=== PATIENT | male | born 1945 | race Caucasian/White ===

== ENCOUNTER 2018-10-08 17:47 | Emergency (ER) | payer OTHER ==
[~2018-10-08] VITALS: Ht 170.2 cm; Wt 62.1 kg
[2018-10-08] MEDS ORDERED: CITRATE OF MAG296 ML PO (19:10)
[2018-10-08] MEDS ORDERED: ALBUTEROL2.5 MG/0.1 INH (19:15)
[2018-10-08] MEDS ORDERED: VENTOLIN HFA 1818 GM INH (19:15)
[2018-10-08] MEDS ORDERED: SIMETHICON CHEW80 M1 PO (21:01)
== END 2018-10-08 21:21 | disposition home or self-care (01) ==
LOC: ER 17:47
DX: K59.00 Constipation, unspecified (principal); R14.0 Abdominal distension (gaseous); F17.210 Nicotine dependence, cigarettes, uncomplicated; J44.9 Chronic obstructive pulmonary disease, unspecified

== ENCOUNTER 2018-11-07 21:32 | Inpatient (IN) | payer OTHER ==
[~2018-11-07] VITALS: Ht 170.2 cm; Wt 65.3 kg
--- NOTE | ~2018-11-07 | HC ---
[facility] [place] [address] CONSULTATION Name: SHIRACotyAUSTIN Room #: [address] [place] [address] IN M.R.#: [id number] Admission: 11/08/18 Attend Phys: Kraig Watters MD Discharge: Date of : 43 Report #: [id number] THIS REPORT FOR: //name// CC: DANNY physician/PCP Kraig Watters DATE OF SERVICE: 11/09/2018 REASON FOR CONSULTATION: Elevated creatinine. HISTORY OF PRESENT ILLNESS: Unfortunate patient with very advanced COPD, presented with shortness of air and a pCO2 of 80-90. Treated with steroids and antibiotics, also given some IV Lasix. He also underwent a CT angiogram of the chest with contrast. His creatinine initially was 1.1 and now has risen to 1.6. He also presented with tachyarrhythmia and new onset atrial fibrillation flutter, continues in this rhythm, rate is a little bit better controlled, although still over 100 intermittently. PAST MEDICAL HISTORY: Longstanding heavy smoker, has continued to smoke right up until the current time. COPD, followed by Dr. Larsen . Has recently been on a course of steroids. He also uses inhalers at home, has home O2, but has for the most part just used it at night. He had remote coronary bypass over 30 years ago at [place], but has not really had cardiac issues since until this episode of tachyarrhythmia. HOME MEDICATIONS: Have included only inhaler, baby aspirin. SOCIAL HISTORY: Heavy smoker, continuing to smoke as mentioned. FAMILY HISTORY: Positive for only heart disease. REVIEW OF SYSTEMS: GENERAL: He was doing reasonably well until increasing shortness of breath recently. EYES: Vision has been okay. Does use glasses. ENT: Hearing okay, swallows okay. No mouth sores. ENDOCRINE: No diabetes or thyroid disease. RESPIRATORY: Very easily short-winded. CARDIOVASCULAR: No chest pain. He does not have any palpitations despite the arrhythmias. GASTROINTESTINAL: No nausea, vomiting, diarrhea, bloody stools. GENITOURINARY: Has a good urinary stream. NEUROLOGIC: Denies seizure, syncope, stroke or neuropathy. MUSCULOSKELETAL: Denies arthritis. PHYSICAL EXAMINATION: [facility] [address] [place] [address] CONSULTATION Name[facility] Room #: 205-P [facility] IN ..#: [id number] Admission: 11/08/18 Attend Phys: Kraig Watters MD Discharge: Date of : 43 Report #: [id number] GENERAL: This is a somewhat thin elderly gentleman, mentally quite good, giving a good history. SKIN: Unremarkable. SKELETAL: Rather thin. HEENT: Extraocular movements are full. Vision intact. No scleral icterus. Hearing intact. Mucous membranes are slightly dry. NECK: Supple. Neck veins are distended. CHEST: Shows scanty basilar crackles. HEART: Irregular and tachy. ABDOMEN: Soft and nontender. EXTREMITIES: Show trace peripheral edema. NEUROLOGIC: Intact. LABORATORY DATA: As mentioned, the pCO2 initially was 90, now it is down to 51. Hemoglobin is 13.5, down from 15.8. Sodium 138, potassium 4.7, chloride 96, bicarbonate 39, creatinine was 1.2, up to 1.6. BUN was 32, up to 43. ASSESSMENT: 1. Acute kidney injury. He had a CT angio in the setting of diuresis and severe chronic obstructive pulmonary disease exacerbation, has some degree of acute kidney injury. Urinalysis and renal sono will be checked for completeness, although I doubt these will reveal much in the way of issues. At this point, I would stop his Lasix, maybe, give him some gentle IV fluids to see if we can get his creatinine turned around. There is a consideration for possible heart catheterization. I will certainly hold off on that as this seems to be very elective, he is not having any chest pains at the current time despite his low ejection fraction. 2. Severe chronic obstructive pulmonary disease. 3. Atrial fibrillation/flutter with rapid ventricular response. 4. History of coronary bypass. By: 1221 1540 Kofi Mayberry MD /nt
--- NOTE | ~2018-11-07 | PATH ---
[facility] [address] [place] [address] PATHOLOGY RPT PROCEDURE Name: JDKIMBERTON Room #: [facility]- ADM IN M.R.#: [id number] Admission: 11/08/18 Date of : 43 Discharge: Report #: [id number] Path Case #: [id number] Note [facility] Accession Number: [id number] TESTS RESULT FLAG UNITS REF RANGE LAB Clinician Provided Cytology Information No. of containers..01 Other (Miscellaneous) Source: PLEURAL FLUID DIAGNOSIS: 02 PLEURAL FLUID NEGATIVE FOR MALIGNANT CELLS. MESOTHELIAL CELLS ARE PRESENT. THIS INTERPRETATION INCLUDES EVALUATION OF A CELL BLOCK. Signed out by: 02 Edy Montero MD, Pathologist NPI- [id number] Performed by: 01 Arnoldo Wooten, Tie In Hand ([facility]) Gross description: 01 12ML, PINK, CLOUDY /LCS FLAG LEGEND: L-Low Normal,H-High Normal,LL-Alert Low,HH-Alert High <-Panic Low,>-Panic High,A-Abnormal,AA-Critical Abnormal Performed at: [address] [place] [address] Rashaun Campuzano MD, [address] [address] Cassidy Whitfield MD, Specimen Comment: A courtesy copy of this report has been sent to Specimen Comment: [phone]. Specimen Comment: Report sent to Performed at: [address], [place], [place] [id number] MD Rashaun Campuzano MD Phone: [phone]
--- NOTE | ~2018-11-07 | EKG ---
[place] [address] [facility] [place] [address] ELECTROCARDIOGRAM REPORT Name: LEONEL MILES Room #: 205-P ADM IN M.R.#: [id number] Admission: 11/08/18 Attend Phys: Kragi Watters MD Discharge: Date of : 44 Report #: [id number] THIS REPORT FOR: //name// [facility] ED Test Date: 2018-11-07 Test Time: 21:42:56 Pat Name: LEONEL MILES Department: Room: 205 Gender: M Inspector Shells: PJ : 1945 Requested By: Darlyn Celeste Order Number: [id number] MD: Aron Sanchez Measurements Intervals [place] Rate: 157 P: 267 NE: 70 QRS: 88 QRSD: 103 T: 265 QT: 247 QTc: 400 Interpretive Statements Atrial flutter with rapid ventricular response Borderline right axis deviation Probable LVH with secondary repol abnrm ST depression, probably rate related Baseline wander in lead(s) V1,V2 No previous ECG available for comparison Electronically Signed On 11-08-2018 8:36:33 LEATHER PRODUCTION WORKER by Aron Sanchez [email or web address] <ELECTRONICALLY SIGNED> By: Aron Sanchez MD, [facility] 11/08/18 0836 41 41 Aron Sanchez MD, [facility] /EPI
--- NOTE | ~2018-11-07 | EKG ---
[address] [address] ELECTROCARDIOGRAM REPORT Name: SHIRACotyLEONEL Room #: 205-P ADM IN M.R.#: [id number] Admission: 11/08/18 Attend Phys: Kraig Watters MD Discharge: Date of : 44 Report #: [id number] THIS REPORT FOR: //name// [facility] Test Date: 2018-11-08 Test Time: 09:22:32 Pat Name: LEONEL MILES Department: Room: 205 P Gender: M Group Activities Aide: : 1945 Requested By: Salud Morris Order Number: [id number] MD: Kevin Dallas Measurements Intervals [place] Rate: 102 P: SD: QRS: 80 QRSD: 129 T: 212 QT: 401 QTc: 523 Interpretive Statements Atrial flutter Ventricular premature complex IVCD, Compared to ECG 11/07/2018 21:42:56 Ventricular premature complex(es) now present Electronically Signed On 11-08-2018 13:26:59 STREETCAR CONDUCTOR by Kevin Dallas [email or web address] <ELECTRONICALLY SIGNED> By: Kevin Dallas MD 11/08/18 1326 1 1 Kevin Dallas MD /DANIELLE
--- NOTE | ~2018-11-07 | HC ---
[facility] [place] [address] CONS[facility]ATION [facility] Room #: [address] [place] [address] IN .R.#: [id number] Admission: 11/08/18 Attend Phys: Kraig Watters MD Discharge: Date of : 44 Report #: [id number] THIS REPORT FOR: //name// CC: FAM physician/PCP Kraig Watters DATE OF SERVICE: 11/09/2018 REFERRING PHYSICIAN: Kraig Watters MD. REASON FOR REFERRAL: COPD. HISTORY OF PRESENT ILLNESS: The patient is a 73-year-old white male who was admitted with progressive dyspnea. A pulmonary consultation was requested. The patient has known underlying COPD. He is followed by school teacher in the local area. He is normally on O2 at 3 liters. The patient was at his usual state of health until the morning of presentation when he started to become dyspneic. With worsening symptoms, he presented to the Emergency Room. Otherwise, he denies any fever, night sweats or chills, chest pain or productive cough. PAST MEDICAL HISTORY: Notable for COPD, chronic O2 at 3 liters, coronary artery disease, underwent coronary artery bypass surgery in the past. ALLERGIES: None to medications. HOME MEDICATIONS: Include DuoNeb q.i.d., aspirin. FAMILY HISTORY: Noncontributory. SOCIAL HISTORY: The patient has smoked in the past, but quit more than a year ago. He denies any alcohol use. REVIEW OF SYSTEMS: As mentioned above, otherwise 10-point system review negative. PHYSICAL EXAMINATION: GENERAL: He is awake, alert, appears to be in moderate distress. VITAL SIGNS: Temperature is 97 degrees, pulse is 70, respiratory rate is 19, blood pressure 108/72 mmHg, saturation 98%. HEENT: Normocephalic, atraumatic. NECK: Supple, without lymphadenopathy or thyromegaly. [facility] [address] [place] [address] CON[facility] Room #: 239-P [facility] IN [facility]#: [id number] Admission: 11/08/18 Attend Phys: Kraig Watters MD Discharge: Date of : 44 Report #: [id number] CHEST: Breath sounds are fair. Bibasilar crackles. Mild expiratory wheezes. CARDIOVASCULAR: Normal S1, S2. There appears to be a gallop, no obvious murmurs. Pulses are 2+/4+ bilaterally. ABDOMEN: Soft, nontender, no organomegaly or masses felt. GENITOURINARY: Deferred. RECTAL: Deferred. EXTREMITIES: 1+ edema bilaterally. No cyanosis or clubbing. LABORATORY DATA: Chest x-ray shows increased interstitial changes in the left lung field. D-dimer was 2.3. BNP 12,900. CT chest angiogram shows no evidence of pulmonary embolus, enlarged cardiac silhouette, severe central lobar emphysema bilaterally with diffuse bronchial wall thickening. There appears to have moderate ascites along with cirrhosis. Echocardiogram showed ejection fraction of 20%, dilated right ventricle, hypokinetic right ventricle, moderate regurgitation, pulmonary artery pressure 33. EKG shows atrial flutter. Renal ultrasound was normal. Electrolytes are normal except for creatinine of 1.6, BUN is 39. WBC 12,200, hemoglobin 13.5, platelets mildly reduced at 104,000. Arterial blood gas on admission revealed pH 7.25, pCO2 of 90, pO2 of 247 and FiO2 of 60%. Follow up arterial blood gas shows pH 7.37, pCO2 of 50, pO2 of 98 on FiO2 of 40%. IMPRESSION: 1. Ndiqj-ka-emcmwbc hypercapnic hypoxic respiratory failure in this 73-year-old white male secondary to exacerbation of chronic obstructive pulmonary disease along with heart failure. 2. Chronic obstructive pulmonary disease, severity unknown, but suspect severe, on chronic O2. 3. Probable acute on chronic systolic heart failure with ejection fraction of 20%. 4. Mitral regurgitation. 5. Acute kidney injury with a creatinine of 1.6. RECOMMENDATIONS: We will continue bronchodilators and corticosteroids. Wean O2 for saturation 90%. DVT and GI prophylaxis recommended. Thank you for the consultation. <ELECTRONICALLY SIGNED> By: Bro Campoverde MD 11/10/18 1659 1839 [id number] Bro Campoverde MD /nt
--- NOTE | ~2018-11-07 | 2DMMODE ---
[facility] [address] [place] [address] 2 D/M-MODE ECHOCARDIOGRAM Name: JDMALAGA Room #: 205-P [facility] IN [facility].#: [id number] Admission: 11/08/18 Attend Phys: Kraig Watters MD Discharge: Date of : 43 Date of Service: 11/08/18 1312 Report #: [id number] THIS REPORT FOR: //name// APPROVED REPORT Study performed: 11/08/2018 12:13:20 EXAM: Comprehensive 2D, Doppler, and color-flow Echocardiogram Patient Location: Bedside Room #: [facility] Status: routine BSA: 1.68 HR: 95 bpm BP: 93/64 mmHg Rhythm: Atrial Flutter Other Information Study Quality: Adequate Indications Congestive Heart Failure COPD Dyspnea Atrial flutter 2D Dimensions RVDd: 53.34 mm IVSd: 7.09 (7-11mm) LVOT Diam: 19.97 (18-24mm) LVDd: 60.04 mm PWd: 7.55 (7-11mm) Ascending Ao: 26.66 (22-36mm) LVDs: 57.43 (25-40mm) Aortic Root: 26.48 mm IVC: 24.00 mm Volumes Left Atrial Volume (Systole) Single Plane 4CH: 66.72 mL Single Plane 2CH: 75.55 mL LA ESV Index: 48.00 mL/m2 Aortic Valve AoV Peak Donavan.: 1.46 m/s AO Peak Gr.: 8.77 mmHg Pulmonary Valve PV Peak Donavan.: 1.15 m/s PV Peak Gr.: 5.30 mmHg [facility] [address] [place] [address] 2 D/M-MODE [facility]ARDIOGRAM [facility] Room #: 205-P [facility] IN [facility].#: [id number] Admission: 11/08/18 Attend Phys: Kraig Watters MD Discharge: Date of : 43 Date of Service: 11/08/18 1312 Report #: [id number] Tricuspid Valve TR Peak Donavan.: 2.40 m/s TR Peak Gr.: 23.09 mmHg PA Pressure: 33.00 mmHg Left Ventricle Left ventricle is dilated. There is severe global hypokinesis of the left ventricle. There is normal left ventricular wall thickness. Left ventricular ejection fraction is severely decreased. LVEF is 20%. This study is not technically sufficient to allow evaluation of the LV diastolic function due to atrial flutter. Right Ventricle Right ventricle is dilated. Right ventricle is hypokinetic. Atria Left atrium is dilated. Right atrium is dilated. Aortic Valve The aortic valve is normal in structure. No aortic regurgitation is present. There is no aortic valvular stenosis. Mitral Valve The mitral valve is normal in structure. Moderate mitral regurgitation. No evidence of mitral valve stenosis. Tricuspid Valve The tricuspid valve is normal in structure. There is trace to mild tricuspid regurgitation. Estimated PAP 33 mmHg. There is mild pulmonary hypertension. Pulmonic Valve The pulmonary valve is normal in structure. There is no pulmonic valvular regurgitation. Great Vessels The aortic root is normal in size. IVC is dilated and collapses <50% with inspiration. Pericardium There is no pericardial effusion. <Conclusion> Left ventricle is dilated. There is severe global hypokinesis of the left ventricle. [facility] [address] [place] [address] 2 D/M-MODE ECHOCARDIOGRAM Name: [facility] Room #: 205-P ADM IN M.R.#: [id number] Admission: 11/08/18 Attend Phys: Kraig Watters MD Discharge: Date of : 43 Date of Service: 11/08/181311 Report #: [id number] LVEF is 20%. Right ventricle is dilated. Right ventricle is hypokinetic. Left atrium is dilated. The aortic valve is normal in structure. The mitral valve is normal in structure. Moderate mitral regurgitation. The tricuspid valve is normal in structure. There is trace to mild tricuspid regurgitation. Estimated PAP 33 mmHg. There is mild pulmonary hypertension. There is no pericardial effusion. <ELECTRONICALLY SIGNED> By: Kavin Colbert MD 11/08/181311 11 1312 Kavin Colbert MD /INF
[~2018-11-07 21:32] MED LIST: ALBUTEROL2.5 MG/0.1 INH; CITRATE OF MAG296 ML PO; SIMETHICON CHEW80 M1 PO; VENTOLIN HFA 1818 GM INH
[2018-11-07 21:53] LABS: ABSOLUTE NEUTROPHILS 6.4 thou/uL (1.4-8.2); BASOPHILS 0.4 % (0.0-2.0); EOSINOPHILS 1.4 % (0.0-3.0); HEMATOCRIT 47.2 % (42.0-52.0); HEMOGLOBIN 15.8 gm/dL (14.0-18.0); LYMPHOCYTES 23.5 % (24.0-44.0); MCH 33.3 pg (26.0-34.0); MCHC 33.4 g/dL (28.0-37.0); MCV 99.7 fL (80.0-100.0); MONOCYTES 10.5 % (1.0-8.0); POLYS 64.2 % (36.0-66.0); RBC 4.74 mil/uL (4.50-6.00); RDW 13.8 % (10.5-14.5)
[2018-11-07 22:10] LABS: ANION GAP 0 mmol/L (7-16); BUN 32 mg/dL (7-18); CALCIUM 8.9 mg/dL (8.5-10.1); CHLORIDE 101 mmol/L (98-107); CO2 37 mmol/L (21-32); CREATININE 1.2 mg/dL (0.7-1.3); GLUCOSE 180 mg/dL (74-106); POTASSIUM 5.5 mmol/L (3.5-5.1); SODIUM 138 mmol/L (136-145)
[2018-11-07 22:10] LABS: BE(vivo) 7.8 mmol/L (-2 to +3); HCO3 39.2 mmol/L (22.0-26.0); PO2 247.3 mmHg (80.0-100.0); sO2 99.4 % (92.0-98.0)
[2018-11-07 22:11] LABS: pH 7.257 (7.360-7.450)
[2018-11-07 22:18] LABS: MAGNESIUM 2.4 mg/dL (1.8-2.4); TROPONIN-I <0.06 ng/mL (<0.06)
[2018-11-07 23:09] LABS: LARGE PLATELETS OCCASIONAL
[2018-11-07 23:10] LABS: PLATELET COUNT 112 thou/uL (150-400)
[2018-11-07 23:21] LABS: BE(vivo) 9.8 mmol/L (-2 to +3); PO2 73.3 mmHg (80.0-100.0); sO2 92.6 % (92.0-98.0)
[2018-11-07 23:22] LABS: PCO2 81.1 mmHg (35.0-45.0); pH 7.311 (7.360-7.450)
[2018-11-08] VITALS (17 sets, daily range): BP systolic 77–110; BP diastolic 43–64
[2018-11-08] MEDS ORDERED: IPRAT-ALBUT 0.5-3 ML (00:02)
[2018-11-08] MEDS ORDERED: ASPIR 8181 MG PO (04:01)
[2018-11-08 05:30] LABS: ANION GAP < 0 mmol/L (7-16); BUN 36 mg/dL (7-18); CALCIUM 8.9 mg/dL (8.5-10.1); CHLORIDE 99 mmol/L (98-107); CO2 38 mmol/L (21-32); CREATININE 1.5 mg/dL (0.7-1.3); GLUCOSE 170 mg/dL (74-106); SODIUM 136 mmol/L (136-145)
[2018-11-08 07:10] LABS: BE(vivo) 2.7 mmol/L (-2 to +3); PCO2 50.8 mmHg (35.0-45.0); PO2 98.6 mmHg (80.0-100.0); pH 7.374 (7.360-7.450); sO2 97.3 % (92.0-98.0)
[2018-11-09 01:40] VITALS: BP 95/63
[2018-11-09 03:45] LABS: CALCIUM 8.9 mg/dL (8.5-10.1); CREATININE 1.6 mg/dL (0.7-1.3); MAGNESIUM 2.3 mg/dL (1.8-2.4)
[2018-11-09 03:48] LABS: POTASSIUM 4.7 mmol/L (3.5-5.1)
[2018-11-09 03:53] LABS: HEMATOCRIT 40.8 % (42.0-52.0); MCH 32.1 pg (26.0-34.0); MCV 97.2 fL (80.0-100.0); RBC 4.2 mil/uL (4.50-6.00); RDW 13.4 % (10.5-14.5); WBC 12.2 thou/uL (4.0-11.0)
[2018-11-09 03:54] LABS: HEMOGLOBIN 13.5 gm/dL (14.0-18.0)
[2018-11-09 06:20] VITALS: BP 99/48
[2018-11-09 07:44] VITALS: BP 106/66
[2018-11-09 11:25] LABS: CHOLESTEROL 127 mg/dL (<200); HDL CHOLESTEROL 54 mg/dL (>40); LDL CHOLESTEROL 64 mg/dL (<100); TC:HDL 2.4 Ratio (Not establshd); TRIGLYCERIDE 46 mg/dL (<150); VLDL 9 mg/dL (<40)
[2018-11-09 11:34] VITALS: BP 108/72
[2018-11-09 14:40] VITALS: BP 107/73
[2018-11-09 17:47] LABS: URINE BILIRUBIN NEGATIVE (Negative); URINE BLOOD NEGATIVE (Negative); URINE CLARITY CLEAR; URINE COLOR YELLOW; URINE GLUCOSE-RANDOM* NEGATIVE (Negative); URINE KETONES NEGATIVE (Negative); URINE LEUKOCYTES NEGATIVE (Negative); URINE NITRITE NEGATIVE (Negative); URINE PROTEIN (DIPSTICK) NEGATIVE (Negative); URINE SPECIFIC GRAVITY <= 1.005 (1.005-1.035)
[2018-11-09 20:09] VITALS: BP 98/61
[2018-11-10] VITALS (49 sets, daily range): BP systolic 96–144; BP diastolic 52–102
[2018-11-10 03:56] LABS: ALBUMIN 3.1 g/dL (3.4-5.0); CALCIUM 9.2 mg/dL (8.5-10.1); CREATININE 1.6 mg/dL (0.7-1.3); PHOSPHORUS 5.3 mg/dL (2.5-4.9); POTASSIUM 4.8 mmol/L (3.5-5.1)
[2018-11-10 04:05] LABS: MCH 31.1 pg (26.0-34.0); MCHC 31.8 g/dL (28.0-37.0); MCV 97.8 fL (80.0-100.0); RBC 4.81 mil/uL (4.50-6.00); RDW 13.7 % (10.5-14.5); WBC 16.9 thou/uL (4.0-11.0)
[2018-11-11] VITALS (22 sets, daily range): BP systolic 119–153; BP diastolic 56–105
[2018-11-11 05:12] LABS: CALCIUM 8.8 mg/dL (8.5-10.1); CREATININE 1.7 mg/dL (0.7-1.3); MAGNESIUM 2.5 mg/dL (1.8-2.4)
[2018-11-11 05:21] LABS: HEMATOCRIT 46.6 % (42.0-52.0); HEMOGLOBIN 15.1 gm/dL (14.0-18.0); MCH 31.8 pg (26.0-34.0); MCHC 32.4 g/dL (28.0-37.0); MCV 98.3 fL (80.0-100.0); RBC 4.74 mil/uL (4.50-6.00); RDW 13.9 % (10.5-14.5); WBC 13.7 thou/uL (4.0-11.0)
[2018-11-11 05:26] LABS: HCO3 37.4 mmol/L (22.0-26.0); PO2 77.5 mmHg (80.0-100.0); sO2 94.7 % (92.0-98.0)
[2018-11-11 05:27] LABS: PCO2 66.1 mmHg (35.0-45.0)
[2018-11-11 10:57] LABS: BE(vivo) 9.1 mmol/L (-2 to +3); HCO3 37.3 mmol/L (22.0-26.0); PCO2 65.3 mmHg (35.0-45.0); PO2 73.1 mmHg (80.0-100.0); pH 7.375 (7.360-7.450); sO2 93.9 % (92.0-98.0)
[2018-11-12] VITALS (12 sets, daily range): BP systolic 114–145; BP diastolic 61–95
[2018-11-12 06:30] LABS: HEMATOCRIT 49.2 % (42.0-52.0); HEMOGLOBIN 16.2 gm/dL (14.0-18.0); MCH 32.4 pg (26.0-34.0); MCV 98.3 fL (80.0-100.0); RBC 5.01 mil/uL (4.50-6.00); RDW 13.3 % (10.5-14.5); WBC 10.4 thou/uL (4.0-11.0)
[2018-11-12 06:45] LABS: ALBUMIN 2.8 g/dL (3.4-5.0); ANION GAP < 0 mmol/L (7-16); BUN 57 mg/dL (7-18); CALCIUM 8.9 mg/dL (8.5-10.1); CHLORIDE 100 mmol/L (98-107); CO2 40 mmol/L (21-32); CREATININE 1.2 mg/dL (0.7-1.3); GLUCOSE 112 mg/dL (74-106); PHOSPHORUS 3.9 mg/dL (2.5-4.9); POTASSIUM 4.8 mmol/L (3.5-5.1); SODIUM 139 mmol/L (136-145)
[2018-11-13 04:41] VITALS: BP 145/68
[2018-11-13 05:06] LABS: ALBUMIN 2.8 g/dL (3.4-5.0); CALCIUM 8.8 mg/dL (8.5-10.1); CREATININE 1.1 mg/dL (0.7-1.3); PHOSPHORUS 3.3 mg/dL (2.5-4.9)
[2018-11-13 09:34] VITALS: BP 132/64
[2018-11-13 12:10] VITALS: BP 145/75
[2018-11-13 16:00] VITALS: BP 156/81
[2018-11-13 19:52] VITALS: BP 154/83
[2018-11-14 04:38] VITALS: BP 108/66
[2018-11-14 07:57] VITALS: BP 126/74
[2018-11-14 11:49] LABS: BE(vivo) 8.5 mmol/L (-2 to +3); HCO3 38.2 mmol/L (22.0-26.0); PCO2 75.4 mmHg (35.0-45.0); PO2 56.4 mmHg (80.0-100.0); pH 7.323 (7.360-7.450); sO2 85.8 % (92.0-98.0)
[2018-11-14 12:12] VITALS: BP 136/71
[2018-11-14 15:45] VITALS: BP 131/77
[2018-11-14 16:57] LABS: APTT 29.6 Seconds (24.5-32.8); INR 1.1; PROTIME 11.7 Seconds (9.3-11.4)
[2018-11-14 20:29] VITALS: BP 136/61
[2018-11-15 03:59] VITALS: BP 119/77
[2018-11-15 09:15] VITALS: BP 145/60
[2018-11-15 11:52] VITALS: BP 128/60
[2018-11-15 15:55] VITALS: BP 139/70
[2018-11-15 20:15] VITALS: BP 149/86
[2018-11-16 04:49] VITALS: BP 115/83
[2018-11-16 07:00] VITALS: BP 133/86
[2018-11-16 11:30] VITALS: BP 134/79
[2018-11-16 17:50] VITALS: BP 137/78
[2018-11-16 19:29] VITALS: BP 146/77
[2018-11-17 03:15] VITALS: BP 137/80
[2018-11-17 04:25] LABS: CALCIUM 8.9 mg/dL (8.5-10.1); CREATININE 0.9 mg/dL (0.7-1.3); POTASSIUM 4.5 mmol/L (3.5-5.1)
[2018-11-17 05:53] LABS: HEMOGLOBIN 15.7 gm/dL (14.0-18.0); MCH 31.5 pg (26.0-34.0); MCHC 32.1 g/dL (28.0-37.0); RDW 13.7 % (10.5-14.5); WBC 15.3 thou/uL (4.0-11.0)
[2018-11-17 08:00] VITALS: BP 122/72
[2018-11-17 11:19] LABS: CLARITY CLOUDY; COLOR RED; SOURCE THORACENTESIS; TOTAL VOLUME 60 mL
[2018-11-17 11:41] LABS: BF NUCLEATED CELLS 427; BF RBC 15558
[2018-11-17 12:00] VITALS: BP 132/68
[2018-11-17 12:54] LABS: BF NEUTROPHILS 44
[2018-11-17 16:00] VITALS: BP 151/60
[2018-11-17 19:52] VITALS: BP 124/71
[2018-11-18 05:12] VITALS: BP 125/79
[2018-11-18 08:00] VITALS: BP 130/69
[2018-11-18 11:07] LABS: BODY FLUID ALBUMIN 0.6 g/dL (()); BODY FLUID PROTEIN 1.5 g/dL (())
[2018-11-18 12:18] VITALS: BP 126/92
[2018-11-18] MEDS ORDERED: LASIX 20 MG TAB20 MG PO (14:20)
[2018-11-18] MEDS ORDERED: ELIQUIS5 MG PO (14:20)
[2018-11-18] MEDS ORDERED: DIGOXIN125 MCG PO (14:20)
[2018-11-18] MEDS ORDERED: METOPROLOL SUCC50 MG PO (14:20)
[2018-11-18] MEDS ORDERED: PEPCID20 MG PO (14:21)
[2018-11-18] MEDS ORDERED: PREDNISONE 10 M10 MG PO (14:22)
[2018-11-18 15:58] VITALS: BP 126/92
[2018-11-18 16:10] VITALS: BP 126/92
== END 2018-11-18 17:28 | disposition home health service (06) | DRG 682 ==
LOC: ER 21:32 → ICU 11-08 02:08 → EROBS 11-08 02:08 → 2N 11-08 02:08 → ICU 11-10 08:19 → 2N 11-12 16:03 → ENTRNSPT 11-18 17:10 → 2N 11-18 17:28
PROVIDERS: Emergency Medicine; Hospitalist; Internal Medicine; Internal Medicine Nephrology; Internal Medicine Pulmonary Disease; Nurse Practitioner; Nurse Practitioner Family
PROC: 5A09357 Assistance with Respiratory Ventilation, Less than 24 Consecutive Hours, Continuous Positive Airway Pressure (ICD-10-PCS; principal; 2018-11-08)
PROC: 5A09357 Assistance with Respiratory Ventilation, Less than 24 Consecutive Hours, Continuous Positive Airway Pressure (ICD-10-PCS; 2018-11-11)
PROC: 5A09357 Assistance with Respiratory Ventilation, Less than 24 Consecutive Hours, Continuous Positive Airway Pressure (ICD-10-PCS; 2018-11-12)
PROC: 5A09357 Assistance with Respiratory Ventilation, Less than 24 Consecutive Hours, Continuous Positive Airway Pressure (ICD-10-PCS; 2018-11-13)
PROC: 5A09357 Assistance with Respiratory Ventilation, Less than 24 Consecutive Hours, Continuous Positive Airway Pressure (ICD-10-PCS; 2018-11-14)
PROC: 5A09357 Assistance with Respiratory Ventilation, Less than 24 Consecutive Hours, Continuous Positive Airway Pressure (ICD-10-PCS; 2018-11-15)
PROC: 5A09357 Assistance with Respiratory Ventilation, Less than 24 Consecutive Hours, Continuous Positive Airway Pressure (ICD-10-PCS; 2018-11-16)
PROC: 5A09357 Assistance with Respiratory Ventilation, Less than 24 Consecutive Hours, Continuous Positive Airway Pressure (ICD-10-PCS; 2018-11-17)
PROC: 0W9B3ZZ Drainage of Left Pleural Cavity, Percutaneous Approach (ICD-10-PCS; 2018-11-17)
PROC: 5A09357 Assistance with Respiratory Ventilation, Less than 24 Consecutive Hours, Continuous Positive Airway Pressure (ICD-10-PCS; 2018-11-18)
DX: N17.9 Acute kidney failure, unspecified (principal); J96.21 Acute and chronic respiratory failure with hypoxia; I50.43 Acute on chronic combined systolic (congestive) and diastolic (congestive) heart failure; J96.22 Acute and chronic respiratory failure with hypercapnia; I13.0 Hypertensive heart and chronic kidney disease with heart failure and stage 1 through stage 4 chronic kidney disease, or unspecified chronic kidney disease; J44.1 Chronic obstructive pulmonary disease with (acute) exacerbation; I48.92 Unspecified atrial flutter; E87.2 Acidosis; I42.9 Cardiomyopathy, unspecified; J90 Pleural effusion, not elsewhere classified; I48.91 Unspecified atrial fibrillation; I25.10 Atherosclerotic heart disease of native coronary artery without angina pectoris; I34.0 Nonrheumatic mitral (valve) insufficiency; D69.6 Thrombocytopenia, unspecified; E87.70 Fluid overload, unspecified; D64.9 Anemia, unspecified; M62.84 Sarcopenia; D72.829 Elevated white blood cell count, unspecified; T38.0X5A Adverse effect of glucocorticoids and synthetic analogues, initial encounter; I27.81 Cor pulmonale (chronic); Z95.1 Presence of aortocoronary bypass graft; Z82.49 Family history of ischemic heart disease and other diseases of the circulatory system; Z87.891 Personal history of nicotine dependence; Z79.82 Long term (current) use of aspirin; Z79.899 Other long term (current) drug therapy; Z83.3 Family history of diabetes mellitus; Z28.21 Immunization not carried out because of patient refusal
CPT/HCPCS: 10078; 10081

== ENCOUNTER 2018-12-02 05:42 | Inpatient (IN) | payer OTHER ==
[~2018-12-02] VITALS: Ht 167.6 cm; Wt 49.0 kg
[2018-12-02] VITALS (34 sets, daily range): BP systolic 83–173; BP diastolic 36–93
[~2018-12-02 05:42] MED LIST changes: +ASPIR 8181 MG PO; +DIGOXIN125 MCG PO; +ELIQUIS5 MG PO; +IPRAT-ALBUT 0.5-3 ML; +LASIX 20 MG TAB20 MG PO; +METOPROLOL SUCC50 MG PO; +PEPCID20 MG PO; +PREDNISONE 10 M10 MG PO
[2018-12-02 05:58] LABS: BE(vivo) 6.4 mmol/L (-2 to +3); HCO3 41.5 mmol/L (22.0-26.0); PO2 182.8 mmHg (80.0-100.0); sO2 98.6 % (92.0-98.0)
[2018-12-02 05:59] LABS: PCO2 136.9 mmHg (35.0-45.0)
--- NOTE | 2018-12-02 06:02 | NUR ---
2 RNs, RT, 1 tech, Dr. Damon with patient when EMS arrived. Pt put on Bipap immediately
[2018-12-02 06:04] LABS: ABSOLUTE NEUTROPHILS 5.7 thou/uL (1.4-8.2); BASOPHILS 1.1 % (0.0-2.0); EOSINOPHILS 0.5 % (0.0-3.0); HEMATOCRIT 43.6 % (42.0-52.0); HEMOGLOBIN 14.6 gm/dL (14.0-18.0); MCH 32.5 pg (26.0-34.0); MCHC 33.5 g/dL (28.0-37.0); MONOCYTES 11.8 % (1.0-8.0); PLATELET COUNT 212 thou/uL (150-400); POLYS 69.6 % (36.0-66.0); RDW 14.4 % (10.5-14.5); WBC 8.2 thou/uL (4.0-11.0)
--- NOTE | 2018-12-02 06:15 | NUR ---
DR. BEEBE AT BEDSIDE.
[2018-12-02 06:22] LABS: POTASSIUM 4.4 mmol/L (3.5-5.1); TOTAL BILIRUBIN 0.6 mg/dL (<0.1-1.0); TOTAL PROTEIN 7.2 g/dL (6.4-8.2)
[2018-12-02 06:32] LABS: ALBUMIN 2.7 g/dL (3.4-5.0); CALCIUM 8.7 mg/dL (8.5-10.1); CREATININE 1.1 mg/dL (0.7-1.3)
[2018-12-02 06:33] LABS: TROPONIN-I 0.7 ng/mL (<0.06)
[2018-12-02 06:53] LABS: BE(vivo) 4.5 mmol/L (-2 to +3); HCO3 34.3 mmol/L (22.0-26.0); PO2 362.3 mmHg (80.0-100.0); sO2 99.7 % (92.0-98.0)
[2018-12-02 06:54] LABS: PCO2 77.4 mmHg (35.0-45.0); pH 7.264 (7.360-7.450)
--- NOTE | 2018-12-02 08:21 | EKG ---
[address] [address] ELECTROCARDIOGRAM REPORT Name: LEONEL MILES Room #: 241-P ADM IN M.R.#: [id number] Admission: 12/02/18 Attend Phys: Jacquelin Gongora Discharge: Date of : 44 Report #: [id number] THIS REPORT FOR: //name// [facility] ED Test Date: 2018-12-02 Test Time: 05:52:29 Pat Name: LEONEL MILES Department: Room: 241 Gender: M Parcel Post Delivery: PJ : 1945 Requested By: Tanya Damon Order Number: [id number] MD: Kevin Dallas Measurements Intervals [place] Rate: 138 P: 0 NH: 72 QRS: 80 QRSD: 110 T: -54 QT: 288 QTc: 437 Interpretive Statements Sinus tachycardia Artifact makes interpretation challenging. Hard to exclude aflutter Artifact in lead(s) I,II,III,aVR,aVL,aVF,V3,V5 and baseline wander in lead(s) V2,V5 Compared to ECG 11/08/2018 09:22:32 Electronically Signed On 12-02-2018 8:21:17 METAL WIRE COATING OPERATOR by Kevin Dallas [email or web address] <ELECTRONICALLY SIGNED> By: Kevin Dallas MD 12/02/18 0821 0552 0552 Kevin Dallas MD /EPI
--- NOTE | 2018-12-02 08:21 | EKG ---
[address] [place] [address] ELECTROCARDIOGRAM REPORT Name: LEONEL MILES Room #: 241-P ADM IN M.R.#: [id number] Admission: 12/02/18 Attend Phys: Jacquelin Gongora Discharge: Date of : 43 Report #: [id number] THIS REPORT FOR: //name// [facility] ED Test Date: 2018-12-02 Test Time: 06:39:57 Pat Name: LEONEL MILES Department: Room: 241 Gender: M Shoe Sewing Machine Operator And Tender: CHAVO : 1945 Requested By: Maximus Singh Order Number: [id number] MD: Aron Sanchez Measurements Intervals [place] Rate: 131 P: 88 RI: 103 QRS: 92 QRSD: 110 T: 261 QT: 295 QTc: 436 Interpretive Statements Sinus tachycardia Poor R wave progression Repol abnrm suggests ischemia, diffuse leads No previous ECGs available for comparison Electronically Signed On 12-02-2018 8:20:52 REGIONAL ACCOUNT EXECUTIVE by Aron Sanchez [email or web address] <ELECTRONICALLY SIGNED> By: Aron Sanchez MD, [facility] 12/02/18 0820 0639 8 Aron Sanchez MD, FACC /EPI
--- NOTE | 2018-12-02 10:48 | NUR ---
CM ASSESSMENT: CASE OPENED FOR DC PLANNING. CLINCIAL INFO REVIEWED. PT KNOWN FROM [facility] ADMIT WITH DC HOME WITH [facility] 11/18/18. ADMITTED WITH A/C RESP FAILURE, ON BIPAP AND SLEEPING AT RPESENT. SPOUSE AT BEDSIDE PROVIDES INFO. PT AND SPOUSE LIVE IN HOUSE, [employer] COMMUNICATIONS SERGEANT, INEDPENDENT WITH ADLS, USES CANE AND WALKER, HOME OE [facility]RU [facility] , [address] CONTINUOUSLY. [facility] RN AND PT STILL COMING TO HOME AND SPOUSE AGREEABLE TO CONITNUE AT DC IF APPROPRIATE. CM TO ASSIST WITH COORDINATION OF DC NEEDS NEEDED. PT/OT EVAL WHEN PT RESP STATUS MORE STABLE.
--- NOTE | 2018-12-02 14:19 | NUR ---
WOUND CONSULT: PT. WAS SEEN TODAY FOR SKIN EVALUATION. PT. 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 THIS WOUND IS FREE OF SIGNS AND SYMPTOMS OF INFECTION. PT. RIGHT HEEL IS BOGGY BUT, BLANCHABLE AND NO WOUNDS ARE NOTED. RECOMMENDATIONS: WOUND CARE TO COCCYX: GENTLY CLEANSE WITH WOUND CLEANSER OR NORMAL SALINE, COVER WITH OPTIFOAM BORDER, COMPLETE CARES M/W/F AND PRN SOILAGE. PT. AND STAFF NURSE WERE INSTRUCTED ON PLAN OF CARE.
--- NOTE | 2018-12-02 19:00 | NUR ---
Patient into 239 from ED, arrived on Bipap at 45%. Patient is awake, drowsy, denies SOB. Denies chest pain. Rec'd IV lasix as ordered. Resting comfortably throughout the day, Judi at bedside. Trialed off bipap at 1700, on 4L NC and maintaining O2 sats. Will resume bipap for HS. Continue to monitor.
[2018-12-02 20:58] LABS: BE(vivo) 14.9 mmol/L (-2 to +3); HCO3 41.9 mmol/L (22.0-26.0); PCO2 61.2 mmHg (35.0-45.0); pH 7.453 (7.360-7.450); sO2 84.2 % (92.0-98.0)
[2018-12-02 20:59] LABS: PO2 47.8 mmHg (80.0-100.0)
[2018-12-03] VITALS (43 sets, daily range): BP systolic 105–162; BP diastolic 56–96
[2018-12-03 04:55] LABS: BE(vivo) 15.5 mmol/L (-2 to +3); HCO3 42.5 mmol/L (22.0-26.0); PCO2 62.5 mmHg (35.0-45.0); sO2 90.9 % (92.0-98.0)
--- NOTE | 2018-12-03 07:12 | NUR ---
ASSUMED PT CARE AT 1900. VSS. PT A&OX4. ASSESSMENTS AND MEDS GIVEN ARE DOCUMENTED. PT WAS ON 4.5L NC AT THE STARTED OF SHIFT, ABGS DRAWN NEW ORDERS RECEIVED FOR PT TO BE BACK ON BIPAP ON SPECIFIC SETTINGS BY DR. GASCA. PT STILL EDEMATUS, PT HAD 550 ML URINE OUTPUT FROM HIS CHUNG. PT MAY HAVE BROTH PER HIS REQUEST ORDERED BY DR GASCA. INSULIN NOT GIVEN LAST NIGHT BECAUSE PT IS NOT EATING. PT IS IN GOOD SPIRITS, HE SLEPT WELL OVER NIGHT. WAS SR ON THE MONITOR WELL. NO COMPLAINTS OF DISTRESS, CHEST PAIN OR ANY KIND OF DISCOMFORT. WILL CONTINUE TO MONITOR PER POC.
--- NOTE | 2018-12-03 18:05 | NUR ---
VSS REMAINS NSR BP SATABLE. LUNGS WITH FINE CRAKLES AND INTERMITTENT WHEEZES, O2 SAT 6L IS 88-96%, 88% PROB ABLY MORE DUE TO POOR FINGER PERFUSION, NO HO TODAY. PT DIEURESING WELL TODAY ON IV LASIX, UO 3300. OFF LOADING COCCYX PRESSURE ULCER WITH TURNING EVERY 2 HOURS, OPTIFORM ON COCCYX INTACT. WILL CONTINUE TO MONITER AND CARE FOR PTPER PLAN OF CARE
[2018-12-04] VITALS (25 sets, daily range): BP systolic 111–160; BP diastolic 60–87
--- NOTE | 2018-12-04 04:50 | NUR ---
ASSUMED PT CARE AT 1900. PT A&0X4. PT ASSESSMENTS ARE CHARTED. EDEMA IN LOWER EXTREMITIES HAS GREATLY IMPROVED. PT WAS SR WITH OCASSIONAL PACs ON THE MONITOR. HE ALSO GOT SB WITH DEEP SLEEP (CHONG 50s). AROUND 030, PT HAD A 6 BEAT RUN OF VTACH ON THE MONITOR. ASIDES THIS, PT HAD A GOOD NIGHT THIS SHIFT. HE SLEPT WELL FOR MOST OF THE NIGHT. HE PREFERS THE BIPAP OFF INTERMITENTLY, 6L HIGHFLOW 02 NC IN USE WHEN BIPAP IS OFF. PT SATS WELL BETWEEN 92-96%. O2 FINGER PROBE CHANGED TO THE TEMPORAL PROBE DUE TO POOR PERFUSION TO FINGERS. PT HAD GOOD URINE OUTPUT DURING THIS SHIFT, HE PUT OUT 1200MLS FROM HIS CHUNG. NO COMPLAINTS OF PAIN OR DISTRESS. WILL CONTINUE TO MONITOR PER POC.
--- NOTE | 2018-12-04 06:08 | NUR ---
PT NOW SATS AT 100% ON HIGH FLOW NASAL CANNULA AT 6L.
[2018-12-04 10:28] LABS: BUN 33 mg/dL (7-18); CALCIUM 8.9 mg/dL (8.5-10.1); CHLORIDE 91 mmol/L (98-107); CREATININE 1.2 mg/dL (0.7-1.3); GLUCOSE 182 mg/dL (74-106); POTASSIUM 3.2 mmol/L (3.5-5.1); SODIUM 140 mmol/L (136-145)
[2018-12-04 10:34] LABS: CO2 > 45 mmol/L (21-32)
--- NOTE | 2018-12-04 16:35 | NUR ---
RECEIVED FROM ICU. VSS NSR. LUNGS WHEEZY, O2 SAT 6L HF IS 91%, UP TO CHAIR AND TOLERATED WELL WALKING FROM WHEELCHAIR TO CHAIR. NO HO. WILL CONTINUE TO MONITER AND CARE FOR PT PER PLAN OF CARE
--- NOTE | 2018-12-04 21:44 | EKG ---
[address] [address] ELECTROCARDIOGRAM REPORT Name: LEONEL MILES Room #: 215-P ADM IN M.R.#: [id number] Admission: 12/02/18 Attend Phys: Jacquelin Gongora Discharge: Date of : 43 Report #: [id number] THIS REPORT FOR: //name// [facility] Test Date: 2018-12-02 Test Time: 09:09:08 Pat Name: LEONEL MILES Department: Room: [facility] Gender: M Welfare Centre Manager: THONG : 1945 Requested By: Fiordaliza Fink Order Number: [id number] MD: Kevin Dallas Measurements Intervals [place] Rate: 110 P: 73 IN: 123 QRS: 85 QRSD: 112 T: 225 QT: 315 QTc: 427 Interpretive Statements Sinus tachycardia Probable left atrial enlargement Borderline intraventricular conduction delay Compared to ECG 12/02/2018 06:39:57 Poor R-wave progression no longer present Electronically Signed On 12-04-2018 21:44:21 TITLE ATTORNEY by Kevin Dallas [email or web address] <ELECTRONICALLY SIGNED> By: Kevin Dallas MD 12/04/18 2144 0909 Kevin Dallas MD /DANIELLE
--- NOTE | 2018-12-04 21:53 | EKG ---
[address] [place] [address] ELECTROCARDIOGRAM REPORT Name: LEONEL MILES Room #: 215-P ADM IN M.R.#: [id number] Admission: 12/02/18 Attend Phys: Jacquelin Gongora Discharge: Date of : 43 Report #: [id number] THIS REPORT FOR: //name// [facility] Test Date: 2018-12-03 Test Time: 06:25:53 Pat Name: LEONEL MILES Department: Room: [facility] Gender: M Windmill Technician: MARIBELL : 1945 Requested By: Fiordaliza Fink Order Number: [id number] MD: Kevin Dallas Measurements Intervals [place] Rate: 83 P: 86 NH: 125 QRS: 70 QRSD: 118 T: 180 QT: 383 QTc: 450 Interpretive Statements Sinus rhythm LVH with secondary repolarization abnormality ST depr, consider ischemia, inferior leads Compared to ECG 12/02/2018 06:39:57 Left ventricular hypertrophy now present Sinus tachycardia no longer present Poor R-wave progression no longer present Possible ischemia still present Electronically Signed On 12-04-2018 21:53:19 VIRTUAL CLASSROOM MANAGER by Kevin Dallas [email or web address] <ELECTRONICALLY SIGNED> By: Kevin Dallas MD 12/04/18 2153 0625 Kevin Dallas MD /EPI
--- NOTE | 2018-12-04 22:04 | EKG ---
[address] [place] [address] ELECTROCARDIOGRAM REPORT Name: LEONEL MILES Room #: 215-P ADM IN M.R.#: [id number] Admission: 12/02/18 Attend Phys: Jacquelin Gongora Discharge: Date of : 43 Report #: [id number] THIS REPORT FOR: //name// [facility] Test Date: 2018-12-04 Test Time: 12:19:04 Pat Name: LEONEL MILES Department: Room: [facility] Gender: M Director Food And Beverage: MARIBELL : 1945 Requested By: Fiordaliza Fink Order Number: [id number] MD: Kevin Dallas Measurements Intervals [place] Rate: 81 P: 98 MO: 125 QRS: 90 QRSD: 122 T: 251 QT: 362 QTc: 421 Interpretive Statements Sinus rhythm Probable left atrial enlargement LVH with secondary repolarization abnormality ST depression, consider ischemia, diffuse lds Compared to ECG 12/02/2018 06:39:57 Left ventricular hypertrophy now present ST (T wave) deviation now present Sinus tachycardia no longer present Poor R-wave progression no longer present Possible ischemia still present Electronically Signed On 12-04-2018 22:04:10 COMPUTER INSTALLATION ENGINEER by Kevin Dallas [email or web address] <ELECTRONICALLY SIGNED> By: Kevin Dallas MD 12/04/18 2204 1219 1219 Kevin Dallas MD /EPI
[2018-12-05 00:08] VITALS: BP 137/90
[2018-12-05 04:00] LABS: CALCIUM 9.5 mg/dL (8.5-10.1); CREATININE 1.3 mg/dL (0.7-1.3)
[2018-12-05 04:06] VITALS: BP 151/83
[2018-12-05 04:07] LABS: HEMATOCRIT 44.1 % (42.0-52.0); HEMOGLOBIN 14.7 gm/dL (14.0-18.0); MCH 32.1 pg (26.0-34.0); MCHC 33.4 g/dL (28.0-37.0); MCV 96.1 fL (80.0-100.0); RBC 4.59 mil/uL (4.50-6.00); RDW 14.2 % (10.5-14.5); WBC 7.2 thou/uL (4.0-11.0)
--- NOTE | 2018-12-05 07:35 | NUR ---
ASSUMED OT CARE AT 1900. VSS. PT A&0X4. ASSESSMENTS AND MEDS GIVEN ARE DOCUMENTED. PT RESTED WELL ALL NIGHT, WAS UP IN THE CHAIR MOST TIMES. BIPAP WAS USED FOR SLEEP. ALSO HAD GOOD URINE OUTPUT. EDEMA IN BILATERAL LOWER EXTREMITIES KEEPS IMPROVING. PT SEEMS TO BE IN GOOD SPIRITS. NO COMPLAINTS OF DISCOMFORT OR DISTRESS, PT IS STABLE, WILL CONTINUE TO MONITOR PER POC.
--- NOTE | 2018-12-05 08:37 | EKG ---
[place] [address] [facility] [place] [address] ELECTROCARDIOGRAM REPORT Name: SHIRACotyLEONEL Room #: 215-P ADM IN M.R.#: [id number] Admission: 12/02/18 Attend Phys: Jacquelin Gongora Discharge: Date of : 43 Report #: [id number] THIS REPORT FOR: //name// [facility] Test Date: 2018-12-05 Test Time: 07:04:32 Pat Name: LEONEL MILES Department: Room: 215 P Gender: M Digital Imaging Technician: THONG : 1945 Requested By: Fiordaliza Fink Order Number: [id number] MD: Aron Sanchez Measurements Intervals [place] Rate: 78 P: 92 CT: 121 QRS: 90 QRSD: 116 T: 268 QT: 350 QTc: 399 Interpretive Statements Sinus rhythm LVH with secondary repolarization abnormality ST depression, consider ischemia, diffuse lds Compared to ECG 12/04/2018 12:19:04 No significant changes Electronically Signed On 12-05-2018 8:36:55 BOAT BUILDER by Aron Sanchez [email or web address] <ELECTRONICALLY SIGNED> By: Aron Sanchez MD, [facility] 12/05/18 0836 3 Aron Sanchez MD, [facility] /EPI
[2018-12-05 08:42] VITALS: BP 146/65
--- NOTE | 2018-12-05 10:22 | NUR ---
met with patient and discussed dc planning. Patient interested in skilled rehab at [facility]. Plan to send referral once therapy evals completed
[2018-12-05 12:00] VITALS: BP 127/75
--- NOTE | 2018-12-05 12:23 | NUR ---
WOUND CARE FOLLOW UP; ASSESSMENT REVEALS A FRAGIALLY HEALED AREA. NO OTHER AREAS OF CONCERN, PATIENT IS AMBULATORY AT THIS TIME. RECPMMENDATIONS; BARRIER CREAM IS MORE APPROPRIATE AT THIS TIME. WILL D/C THE ORDER FOR A FOAM DRESSING. DISCUSSED WITH KOLE
--- NOTE | 2018-12-05 14:14 | NUR ---
FAXED REFERRAL TO [facility] SKILL[facility]. SPOKE WITH LUNA IN ADM. AND THEY CAN ACCEPT PT. AT DISCHARGE. DCP TO FOLLOW.
[2018-12-05 16:00] VITALS: BP 148/82
--- NOTE | 2018-12-05 16:13 | NUR ---
PT ADMITTED TO ROOM 213 - A/O X 4 - GREAT HISTORIAN /C MEDICAL INFORMATION - VSS - DENIES CHEST PAIN - MEDS REVIEWED - DONI AND DR. EARL AT BEDSIDE - ASSESSMENT COMPLETED CHARTED
[2018-12-05 19:58] VITALS: BP 157/79
--- NOTE | 2018-12-06 03:32 | NUR ---
ASSUMED CARE 1899. VSS. ASSESSMENT CHARTED. PT DENIES ANY PAIN OR CONCERNS. SOB WHEN EXCERTION. HIGH FLOW NC IN PLACE PER RT. PT D/C'D EJ IV, LATER IN THE NIGHT HE D/C'D THE NEW FOREARM IV STATED HE MUST HAVE DONE IN HIS SLEEP, NEW IV IN PLACE. URINARY CATH D/C'D, GOOD URINE OUTPUT AFTER. PLAN FOR AM LABS. PT HOPEFUL TO D/C TODAY. WILL CONTINUE TO MONITOR AND WITH POC.
[2018-12-06 03:37] LABS: HEMATOCRIT 47.7 % (42.0-52.0); MCHC 33.6 g/dL (28.0-37.0); MCV 95.2 fL (80.0-100.0); RBC 5.01 mil/uL (4.50-6.00); RDW 13.8 % (10.5-14.5); WBC 8.2 thou/uL (4.0-11.0)
[2018-12-06 03:54] LABS: BUN 59 mg/dL (7-18); CALCIUM 9.9 mg/dL (8.5-10.1); CHLORIDE 93 mmol/L (98-107); CREATININE 1.3 mg/dL (0.7-1.3); GLUCOSE 124 mg/dL (74-106); POTASSIUM 4.3 mmol/L (3.5-5.1); SODIUM 141 mmol/L (136-145)
[2018-12-06 03:57] LABS: CO2 > 45 mmol/L (21-32)
[2018-12-06 04:45] VITALS: BP 117/54
[2018-12-06 07:40] VITALS: BP 130/63
[2018-12-06 09:27] LABS: BUN 59 mg/dL (7-18); CALCIUM 9.5 mg/dL (8.5-10.1); CHLORIDE 95 mmol/L (98-107); CREATININE 1.2 mg/dL (0.7-1.3); GLUCOSE 122 mg/dL (74-106); POTASSIUM 4.1 mmol/L (3.5-5.1); SODIUM 141 mmol/L (136-145)
[2018-12-06 09:28] LABS: CO2 > 45 mmol/L (21-32)
--- NOTE | 2018-12-06 12:03 | NUR ---
ASSUMED PATIENT CARE AT 0700. ALERT TO SELF. AGITAED AND IMPOSIVE. PULLED OFF MONITOR OFF WANTS GO HOME.PATIENT'S SENT TWO FRIELDS TO HERE TO ACCOMPANY. PATIENT GETTING BETTER NOW. KNOWING WHERE HE IS. PANNING DC TO SNF ONCE GET INSURANCE APPROVED.
[2018-12-06 12:50] VITALS: BP 113/62
--- NOTE | 2018-12-06 13:14 | EKG ---
[address] [address] ELECTROCARDIOGRAM REPORT Name: LEONEL MILES Room #: 215-P ADM IN M.R.#: [id number] Admission: 12/02/18 Attend Phys: Jacquelin Gongora Discharge: Date of : 43 Report #: [id number] THIS REPORT FOR: //name// [facility] Test Date: 2018-12-06 Test Time: 07:32:37 Pat Name: LEONEL MILES Department: Room: 215 P Gender: M Melter Supervisor Open Hearth Furnace: THONG : 1945 Requested By: Fiordaliza Fink Order Number: [id number] MD: Kevin Dallas Measurements Intervals [place] Rate: 72 P: 98 MS: 124 QRS: 85 QRSD: 113 T: 22 QT: 333 QTc: 365 Interpretive Statements Sinus rhythm Probable left atrial enlargement Borderline intraventricular conduction delay Abnormal R-wave progression, early transition Repol abnrm suggests ischemia, diffuse leads,improved compared to prior Baseline wander in lead(s) V6 Compared to ECG 12/05/2018 07:04:32 Electronically Signed On 12-06-2018 13:14:11 SENIOR MANUFACTURING TEST ENGINEER by Kevin Dallas [email or web address] <ELECTRONICALLY SIGNED> By: Kevin Dallas MD 12/06/18 1314 Kevin Dallas MD /EPI
[2018-12-06 16:00] VITALS: BP 125/65
--- NOTE | 2018-12-06 17:15 | NUR ---
[facility] cont to work on auth and has not rec at this time. Left message with phys. Updated and patient as well as RN will cont with trying to obtain auth in am. [facility] also attempted at providing BIPAP. They questioned if need for home. Sp with Dr Campoverde who reports BIPAP at facility and then he can f/u with pulmonary and no home BIPAP. Updated PANDA at [facility] and .
[2018-12-06 19:48] VITALS: BP 102/62
--- NOTE | 2018-12-07 03:00 | NUR ---
ASSUMED CARE 1900. VSS. ASSESSMENT CHARTED. PT DENIES ANY PAIN OR CONCERNS. 3 L HIGH FLOW NC, REFUSED BIPAP TONIGHT. PT READY TO GO TO [facility], AWAITING AUTHORIZATION. PLAN FOR LABS THIS AM. WILL CONTINUE TO MONITOR AND WITH POC.
[2018-12-07 04:03] LABS: BUN 57 mg/dL (7-18); CALCIUM 9.2 mg/dL (8.5-10.1); CHLORIDE 99 mmol/L (98-107); CREATININE 1.3 mg/dL (0.7-1.3); GLUCOSE 107 mg/dL (74-106); SODIUM 143 mmol/L (136-145)
[2018-12-07 04:05] LABS: CO2 > 45 mmol/L (21-32)
[2018-12-07 04:39] VITALS: BP 140/63
[2018-12-07 05:07] LABS: ADENOVIRUS Negative (Negative); INFLUENZA A Negative (Negative); INFLUENZA B Negative (Negative); METAPNEUMOVIRUS Positive (Negative); PARAINFLUENZA 1 Negative (Negative); PARAINFLUENZA 2 Negative (Negative); PARAINFLUENZA 3 Negative (Negative); RHINOVIRUS Negative (Negative); RSV A Negative (Negative); RSV B Negative (Negative)
--- NOTE | 2018-12-07 08:12 | EKG ---
[address] [place] [address] ELECTROCARDIOGRAM REPORT Name: LEONEL MILES Room #: 215-P ADM IN M.R.#: [id number] Admission: 12/02/18 Attend Phys: Jacquelin Gongora Discharge: Date of : 43 Report #: [id number] THIS REPORT FOR: //name// [facility] Test Date: 2018-12-07 Test Time: 07:19:51 Pat Name: LEONEL MILES Department: Room: 215 P Gender: M Safety Advisor: THONG : 1945 Requested By: Fiordaliza Fink Order Number: [id number] MD: Aron Sanchez Measurements Intervals [place] Rate: 53 P: 85 IN: 115 QRS: 78 QRSD: 121 T: 162 QT: 393 QTc: 369 Interpretive Statements Sinus rhythm Borderline short IN interval Nonspecific intraventricular conduction delay Repol abnrm, severe global ischemia (LM/MVD) Compared to ECG 12/06/2018 07:32:37 No significant changes Electronically Signed On 12-07-2018 8:12:01 DIGESTER HAND by Aron Sanchez [email or web address] <ELECTRONICALLY SIGNED> By: Aron Sanchez MD, [facility] 12/07/18811 8 8 Aron Sanchez MD, [facility] /EPI
[2018-12-07 08:20] VITALS: BP 138/45
[2018-12-07 12:52] VITALS: BP 74/46
--- NOTE | 2018-12-07 14:46 | NUR ---
cont to await [facility] decision for auth for post acute care. Sp with Justina who reports patient needs a COMPLETE OT eval prior to decision of post acute care.
[2018-12-07 15:47] VITALS: BP 118/91
--- NOTE | 2018-12-07 19:52 | NUR ---
ASSUMED CARE OF PT AT APPROX 0700. PT IS ALERT AND ORIENTED. CONFUSED AT TIMES, BUT EASILY REORIENTED. ABLE TO MAINTAIN 02 SAT ON CURRENT 02 SETTINGS. ASSESSMENT CHARTED. DENIES PAIN. COMPLAINS OF ANXIETY THIS AFTERNOON THAT IS RESOLVED AFTER PRN MEDICATION ADMINISTRATION. DENIES SOA, EVEN NONLABORED BREATHING. WAITING ON INSURANCE AUTH FOR DC. MAKING GOOD PROGRESS TOWARDS POC. WILL CONT. TO MONITOR.
[2018-12-07 20:00] VITALS: BP 118/64
[2018-12-08] VITALS (120 sets, daily range): BP systolic 64–154; BP diastolic 19–77
[2018-12-08 00:50] LABS: BE(vivo) 19.1 mmol/L (-2 to +3); HCO3 51.3 mmol/L (22.0-26.0); PO2 96.5 mmHg (80.0-100.0); sO2 96.3 % (92.0-98.0)
[2018-12-08 00:53] LABS: HEMATOCRIT 44.2 % (42.0-52.0); HEMOGLOBIN 14.8 gm/dL (14.0-18.0); MCH 32.1 pg (26.0-34.0); MCHC 33.5 g/dL (28.0-37.0); MCV 96.1 fL (80.0-100.0); RBC 4.6 mil/uL (4.50-6.00); RDW 14.1 % (10.5-14.5)
[2018-12-08 00:57] LABS: BUN 59 mg/dL (7-18); CALCIUM 9.3 mg/dL (8.5-10.1); CHLORIDE 99 mmol/L (98-107); CREATININE 1.3 mg/dL (0.7-1.3); GLUCOSE 184 mg/dL (74-106); MAGNESIUM 2.4 mg/dL (1.8-2.4); POTASSIUM 3.5 mmol/L (3.5-5.1); SODIUM 145 mmol/L (136-145)
[2018-12-08 00:59] LABS: CO2 > 45 mmol/L (21-32)
[2018-12-08 01:01] LABS: PCO2 101.3 mmHg (35.0-45.0); pH 7.322 (7.360-7.450)
--- NOTE | 2018-12-08 01:24 | NUR ---
WATER CONTROL STATION ENGINEER ACTIVATED FOR DECREASED LOC, BRADYCARDIA, AND HYPOTENSION. BS LOW PRIOR TO WATER CONTROL STATION ENGINEER-TREATED WITH IV D50. PT STILL WITH DECREASED LOC POST BS TREATMENT. PT HAD REFUSED BIPAP EARLIER IN THE NIGHT. ABG DRAWN. GUITAR TECHNICIAN ROUNDED ON PT AT 0050 AND ORDERS TO TX TO ICU. SEE RAPID RESPONSE INTERVENTION FOR FURTHER DOCUMENTATION.
--- NOTE | 2018-12-08 01:48 | NUR ---
ASSUMED PT CARE AT 1900 WITH NO SIGN OF DISTRESS NOTED. PT IS ALERT AND SITTING A THE BEDSIDE, SCHEDULED MEDS ADMINISTERED TO PT WITH BLOOD SUGAR CHECKED AND COVERED, BLOOD SUGAR WAS 164 AND 8 UNITS WAS COVERED. PT IS STABLE. AT ABOUT MIDNIGHT PATIENT BECAME BRADYCARDIC AND LETHARGIC. BLOOD SUGAR CHECKED AND IT WAS LOW. PT WAS HYPOGLYCEMIC, INTERVENTION IN PLACE, PT WAS STILL NON-AROUSABLE. RAPID REPSONSE WAS INITIATED. NURSE PRACTITIONER NOTIFIED, ORDERS RECEIVED AND PATIENT WAS TRANSFERED TO ICU, FAMILY NOTIFIED ABOUT PATIENT'S TRANSFERED.
[2018-12-08 02:25] LABS: HCO3 45.9 mmol/L (22.0-26.0); PO2 91.5 mmHg (80.0-100.0); sO2 95.9 % (92.0-98.0)
[2018-12-08 02:50] LABS: PCO2 89.9 mmHg (35.0-45.0); pH 7.326 (7.360-7.450)
--- NOTE | 2018-12-08 06:17 | NUR ---
PT TRANSFERRED TO ICU AT APROX 0130. UPON TRANSFER, PT HYPOGLYCEMIC, HYPOTENSIVE, BRADYCARDIC, AND LETHARGIC. D10 AT 50ML/HR AND LEVEOPHED GTT INITIATED. SINCE TRANSFER, PT ON BIPAP. OF 0600, PT MORE ALERT, MAP > 65, AND BLOOD GLUCOSE WNL. WILL CONTINUE TO MONITOR.
--- NOTE | 2018-12-08 07:10 | NUR ---
OCCUPATIONAL THERPY WILL PLACE PT ON HOLD AT THIS TIME SECONDARY TO PT'S TRANSFER TO ICU WITH A CHANGE IN MEDICAL STATUS. WILL AWAIT RESTART ORDERS ONCE PT MEDICALLY STABLE.
--- NOTE | 2018-12-08 07:20 | NUR ---
RN attempted to reach pt's again this am w/o any success. Left message for her to call back to ICU regarding of pt. Notified on coming RN.
--- NOTE | 2018-12-08 08:10 | EKG ---
[address] [place] [address] ELECTROCARDIOGRAM REPORT Name: SHIRACotyLEONEL Room #: 241-P ADM IN M.R.#: [id number] Admission: 12/02/18 Attend Phys: Jacquelin Gongora Discharge: Date of : 43 Report #: [id number] THIS REPORT FOR: //name// [facility] Test Date: 2018-12-08 Test Time: 00:38:41 Pat Name: LEONEL MILES Department: Room: 241 Gender: M It Teacher: stas : 1945 Requested By: Christin Siegel Order Number: [id number] MD: Kevin Dallas Measurements Intervals [place] Rate: 48 P: 91 CT: 122 QRS: 81 QRSD: 125 T: 249 QT: 444 QTc: 397 Interpretive Statements Sinus bradycardia with competing junctional rhythm LVH with secondary repolarization abnormality ST depression, consider ischemia, diffuse lds Compared to ECG 12/07/2018 07:19:51 Electronically Signed On 12-08-2018 8:10:37 DESCRIPTIVE CATALOG LIBRARIAN by Kevin Dallas [email or web address] <ELECTRONICALLY SIGNED> By: Kevin Dallas MD 12/08/18 0810 0038 0038 Kevin Dallas MD /DANIELLE
[2018-12-08 11:20] LABS: HCO3 46.6 mmol/L (22.0-26.0); PO2 96.6 mmHg (80.0-100.0); pH 7.335 (7.360-7.450); sO2 96.5 % (92.0-98.0)
[2018-12-08 11:21] LABS: PCO2 89.4 mmHg (35.0-45.0)
--- NOTE | 2018-12-08 12:56 | NUR ---
PT CONDITION DETERIORATED LATE ISELA WITH HYPOGLYCEMIA, HYPOTENSION AND TRANSFERRED TO ICU. ADMISSIONS AT [facility] UPDATED. SKILLED AUTH GOOD FOR 48 HOURS BUT PANDA AT [facility] INDICATES NO ADMISSIONS THIS WEEKEND R/T INCLEMENT WEATHER PREDICTION. DR. SHERIDAN UPDATED.
--- NOTE | 2018-12-08 16:42 | NUR ---
PT IS ALERT TO PERSON AND PLACE BUT SOME CONFUSION NOTED AT TIMES. LUNGS ARE COARSE TO DIMINISHED. SINUS CHRISTIANNE TO SINUS RHYTHM ON THE UNIFORM ATTENDANT. FAMILY AT BEDSIDE FOR SUPPORT. ON 02 AT 8 LITERS NASAL CANULA. OXYGEN SATURATION AT 95 PERCENT. HARD OF HEARING WEARS GLASSESS. EATING HIS MEALS TODAY WITHOUT DIFFICULTY. ABG DONE TODAY AND CHEST XRAY. ABDOMEN IS SOFT. ACTIVE BOWEL SOUNDS. WILL CONTINUE TO MONITOR AND ASSESS PER NURSING
[2018-12-09] VITALS (73 sets, daily range): BP systolic 83–143; BP diastolic 28–70
[2018-12-09 06:03] LABS: CALCIUM 8.6 mg/dL (8.5-10.1); CREATININE 0.9 mg/dL (0.7-1.3); MAGNESIUM 2.2 mg/dL (1.8-2.4)
[2018-12-09 06:07] LABS: POTASSIUM 4.3 mmol/L (3.5-5.1)
--- NOTE | 2018-12-09 06:31 | NUR ---
assessment as documented. Patient placed on BIPAP the whole night. LEVOPHED drip titrated down and was able to tunr off at 6am. patient complaint of being hot during the initial assessment last night, pushpa hugger placed on standby but placed back on at 4am due to low temp. denies any pain. turning every 2 hours done. oral care done, wound care done. ff up poc.
[2018-12-09 07:14] LABS: HEMATOCRIT 40.2 % (42.0-52.0); HEMOGLOBIN 13.2 gm/dL (14.0-18.0); MCH 31.5 pg (26.0-34.0); MCHC 32.9 g/dL (28.0-37.0); RBC 4.19 mil/uL (4.50-6.00)
--- NOTE | 2018-12-09 13:30 | NUR ---
TRANSFER TO ICU 240 VIA BED. FAMILY AT BEDSIDE. BLOOD PRESSURE IS STABLE 94/67 WITH MAP 76. OXYGEN SATURATION IS 94 PERCENT ON 4 LITERS NASAL CANULA. NSR ON THE FIBREGLASS LAY UP WORKER. PAIN MEDS GIVEN FOR RIGHT HIP PAIN. WILL CONTINUE TO ASSESS AND MONITOR PER NURSING IN THE INTENSIVE CARE UNIT AT THIS TIME.
--- NOTE | 2018-12-09 15:42 | NUR ---
RISK MANAGEMENT SPOKE WITH PT'S FAMILY MEMBER IN REGARDS TO HIS CONCERNS AND ISSUES WITH PTS PLAN OF CARE AT THIS TIME WITH HOSPITALIZATION. QUESTIONS AND CONCERNS ANSWERED PER RISK MANAGEMENT
--- NOTE | 2018-12-09 16:57 | NUR ---
TRANSFER TO ROOM 361 VIA WHEEL CHAIR. VS STABLE TRANSFERED WITH NASAL CANULA AT 8 LITERS . LUNGS ARE DIMINISHED TO COARSE. STOOD UP AND TRANSFERED WELL WITH TRANSFER TO WHEEL CHAIR. FALL SOCKS ON REPORT GIVEN TO RN TO ASSUME CARE. NO CONCERNS OR ISSUES AT THIS TIME.
--- NOTE | 2018-12-09 18:40 | NUR ---
ASSUMED PATIENT CARE FROM ICU. A&OX3-4. SPOUSE AT BEDSIDE. NO COMPLAINTS AT THIS TIME. WORKING TOWARD DISCHARGE GOALS. BIPAP HS AND NC DURING THE DAY. PLAN IS TO DC TO SNF ON WEDNESDAY.
[2018-12-10 04:00] VITALS: BP 149/67
--- NOTE | 2018-12-10 04:27 | NUR ---
SLEPT MOST OF SHIFT WITH BIPAP ON. SLEEPING AT BEDSIDE. DENIES COMPLAINTS OF PAIN BUT REMAINS WITH SHORTNESS OF AIR AT REST AND WITH MILD ACTIVITY. PROGRESSING SLOWLY TOWARDS DISCHARGE GOALS. MOVES SELF AROUND IN BED WITH MINIMAL ASSIST. WORKING ON GOALS AND PLAN OF CARE FOR NOC. TOLERATING BIPAP. CONTINUE TO ASSES CLOESLY. ASSIST WITH HYDRATION PRN.
[2018-12-10 06:00] LABS: HEMATOCRIT 40.7 % (42.0-52.0); HEMOGLOBIN 13.1 gm/dL (14.0-18.0); MCH 31.1 pg (26.0-34.0); MCHC 32.1 g/dL (28.0-37.0); MCV 96.7 fL (80.0-100.0); RBC 4.21 mil/uL (4.50-6.00); RDW 13.7 % (10.5-14.5); WBC 9.3 thou/uL (4.0-11.0)
[2018-12-10 06:13] LABS: ANION GAP < 0 mmol/L (7-16); BUN 28 mg/dL (7-18); CALCIUM 8.4 mg/dL (8.5-10.1); CHLORIDE 107 mmol/L (98-107); CO2 44 mmol/L (21-32); CREATININE 0.8 mg/dL (0.7-1.3); GLUCOSE 95 mg/dL (74-106); MAGNESIUM 2.2 mg/dL (1.8-2.4); POTASSIUM 4.4 mmol/L (3.5-5.1); SODIUM 150 mmol/L (136-145)
[2018-12-10 07:38] VITALS: BP 132/62
[2018-12-10 15:16] VITALS: BP 132/71
--- NOTE | 2018-12-10 15:50 | NUR ---
ASSUMED PATIENT CARE AT 0715. A&OX3-4. NO COMPLAINTS OF PAIN. PATIENT COMING ON AND OFF THE BIPAP MULTIPLE TIMES TODAY. CURRENTLY ON THE BIPAP. PATIENT FEELING SOA. O2 SATS RUNNING 95-98%. SPOUSE AT BEDSIDE. SPOUSE VERY WORRIED ABOUT PATIENT AND WAS TEARFUL MULTIPLE TIMES TODAY. BM TODAY. ABLE TO MAKE NEEDS KNOWN. CLOSE TO DESK. HOURLY ROUNDING TO CHECK NEEDS.
[2018-12-10 20:55] VITALS: BP 129/68
--- NOTE | 2018-12-11 04:41 | NUR ---
Pt. had requested anxiety med at HS , lorazepam given. He has been very anxious and keeps taking off BIPAP stating he can't breathe. O2 sat in the mid 90's . RT notified. at bedside who keeps reminding pt. to keep BIPAP on otherwise he will get short of breath. Ambien given later on and he finally started sleeping around 0200. O2 sat now in the upper 90's and he has been calm and sleeping. Bed alarm on , pt. needs reminder not get up without assistance. Repositioned prn but able to reposition self when he is not short of breath. Slowly making progress towards care plan goals.
[2018-12-11 05:35] VITALS: BP 155/67
[2018-12-11 06:00] LABS: HEMATOCRIT 39.1 % (42.0-52.0); HEMOGLOBIN 12.6 gm/dL (14.0-18.0); MCH 31.2 pg (26.0-34.0); MCHC 32.3 g/dL (28.0-37.0); MCV 96.6 fL (80.0-100.0); RBC 4.05 mil/uL (4.50-6.00); WBC 13.9 thou/uL (4.0-11.0)
[2018-12-11 06:13] LABS: ANION GAP < 0 mmol/L (7-16); BUN 25 mg/dL (7-18); CALCIUM 8.4 mg/dL (8.5-10.1); CHLORIDE 104 mmol/L (98-107); CO2 42 mmol/L (21-32); CREATININE 0.8 mg/dL (0.7-1.3); GLUCOSE 106 mg/dL (74-106); MAGNESIUM 2.1 mg/dL (1.8-2.4); POTASSIUM 4.4 mmol/L (3.5-5.1); SODIUM 145 mmol/L (136-145)
[2018-12-11 07:30] VITALS: BP 114/61
[2018-12-11 11:55] VITALS: BP 97/54
[2018-12-11 17:07] VITALS: BP 130/51
--- NOTE | 2018-12-11 18:26 | NUR ---
ASSUMED PATIENT CARE AT 0700. OFF BIPAP AT 1000. A/O X4. PLEASANT. ASSISTED PATIENT TO CHAIR. TOLERTAED ON 4L/NC. NO SOB NOTED. PROGRESSING TOWARDS POC GOALS.
[2018-12-11 19:25] VITALS: BP 118/67
[2018-12-12 03:50] VITALS: BP 116/67
--- NOTE | 2018-12-12 03:53 | NUR ---
Pt. requested sleep med at . He slept well most of the night with BIPAP on. He has been calm and cooperative , no anxiety last night. O2 at 4L/NC when not on BIPAP. Maintaining O2 sat up to 100%. He does get short of breath with exertion. Able to reposition self on bed. Denies any pain. Visited by a good friend last night. Making progress towards care paln goals.
[2018-12-12 04:19] LABS: HEMATOCRIT 40.3 % (42.0-52.0); HEMOGLOBIN 13.1 gm/dL (14.0-18.0); MCH 31.2 pg (26.0-34.0); MCHC 32.4 g/dL (28.0-37.0); MCV 96.2 fL (80.0-100.0); RBC 4.19 mil/uL (4.50-6.00); RDW 13.8 % (10.5-14.5)
[2018-12-12 04:50] LABS: BUN 24 mg/dL (7-18); CALCIUM 8.5 mg/dL (8.5-10.1); CHLORIDE 101 mmol/L (98-107); CREATININE 0.7 mg/dL (0.7-1.3); GLUCOSE 87 mg/dL (74-106); MAGNESIUM 1.9 mg/dL (1.8-2.4); POTASSIUM 4.2 mmol/L (3.5-5.1); SODIUM 141 mmol/L (136-145)
[2018-12-12 05:21] LABS: CO2 > 45 mmol/L (21-32)
[2018-12-12 07:49] VITALS: BP 132/69
[2018-12-12 11:36] VITALS: BP 134/49
--- NOTE | 2018-12-12 11:40 | NUR ---
dp faxed updates to [facility], patient may dc today, will need insurance authorization. DP will call to ensure delivery of updates.
--- NOTE | 2018-12-12 15:16 | NUR ---
SUPRIYA reviewed chart and spoke with nursing and attending physician. Pt was transferred to from ICU. Awaiting insurance authorization at this time for pt to go to [facility]. vacation planner faxed updated clinical/therapy info to [facility] earlier today. SW faxed additional info regarding pt's bipap/respiratory status per their request. Awaiting determination from insurance at this time. SUPRIYA met with pt at bedside to provide update and left voice message for pt's to update. SUPRIYA is following to assist as needed with discharge planning.
[2018-12-12 15:36] VITALS: BP 95/53
--- NOTE | 2018-12-12 18:17 | NUR ---
ASSUMED PATIENT CARE AT 0700. A/O X4. BIPAP ON AND OFF. PATIENT ON 3-4L/NC WHEN BIPAP OFF. VOID AFTER CHUNG DC'D. SOB WITH ACTIVTY. SLOWLY TOWARDS POC GOALS.
[2018-12-12 20:50] VITALS: BP 97/59
[2018-12-13 04:33] VITALS: BP 123/60
--- NOTE | 2018-12-13 04:38 | NUR ---
DURING SHIFT PT REQUESTED TO COME OFF AND ON BIPAP. AFTER MULTIPLE ATTEMPTS PT STILL WOULD DESAT TO LOW 70'S. PT FIGHTS BEING ON THE BIPAP. PT ABLE TO TAKE MEDICATIONS WHOLE WITH WATER. THERE IS SOME CONFUSION WHICH I DO NOT KNOW IF IT IS FROM RETAINING TOO MUCH C02. HEART RHYTHMS FLUCTUATE AFIB AND VTACH THAT IS NON SUBSTAINED.
[2018-12-13 07:33] VITALS: BP 147/65
--- NOTE | 2018-12-13 09:12 | NUR ---
care of pt assumed this am @ 0700. pt resting quietly and comfortably in room in bed on bipap. dr. ulloa at this am. pt request to eat breakfast up in his chair. pt put up in chair and he was a sba x1 w/ a stand and pivot. pt off bipap and placed on o2 @ 5lt nc to eat. pt request peanut butter and jelly this am w/ breakfast. family at to see pt, informed of possible dc to [facility] today, will wait to talk w/ cm later today.
[2018-12-13 10:50] LABS: HEMATOCRIT 43.3 % (42.0-52.0); MCH 31.1 pg (26.0-34.0); MCHC 32.4 g/dL (28.0-37.0); MCV 95.9 fL (80.0-100.0); RBC 4.52 mil/uL (4.50-6.00); WBC 13.1 thou/uL (4.0-11.0)
[2018-12-13 11:00] LABS: BUN 24 mg/dL (7-18); CALCIUM 8.7 mg/dL (8.5-10.1); CHLORIDE 100 mmol/L (98-107); CREATININE 0.9 mg/dL (0.7-1.3); GLUCOSE 183 mg/dL (74-106); POTASSIUM 4.1 mmol/L (3.5-5.1); SODIUM 142 mmol/L (136-145)
[2018-12-13 11:02] LABS: CO2 > 45 mmol/L (21-32)
[2018-12-13 11:08] VITALS: BP 155/75
[2018-12-13 11:57] LABS: BE(vivo) 15.7 mmol/L (-2 to +3); HCO3 47.3 mmol/L (22.0-26.0); PO2 63.4 mmHg (80.0-100.0); sO2 89.2 % (92.0-98.0)
[2018-12-13 11:58] LABS: PCO2 91.7 mmHg (35.0-45.0)
--- NOTE | 2018-12-13 11:58 | NUR ---
gretchen sent updates to [facility], gretchen will contact Tameka at [facility] to let her know to expect the fax.
[2018-12-13 15:20] VITALS: BP 146/74
--- NOTE | 2018-12-13 15:47 | NUR ---
SUPRIYA reviewed chart and spoke with nursing and attending physician. Awaiting insurance authorization at this time for pt to go to [facility]. Clinical and therapy updates faxed to [facility] by town planner. SUPRIYA met with pt at bedside to provide update. Pt is aware and agreeable with plan for d/c when insurance authorization is obtained. SUPRIYA spoke with pt's , via phone to provide update. SUPRIYA updated pt's nurse. SUPRIYA is following to assist as needed with discharge planning.
[2018-12-13 19:07] VITALS: BP 155/80
--- NOTE | 2018-12-14 02:52 | NUR ---
PT PROGRESSING TOWARDS DC TOMORROW. REPLACED 4 O2 PROBES DUE TO POOR PERFUSION. FINALLY FINDING SUCCESS WITH TEMPORAL PROBE. PT IMPULSIVE TO USE URINAL, AND BED ALARM IS A MUST. BIPAP BEING WORN TONIGHT WITHOUT PT FIGHTING IT LIKE PREVIOUS NIGHTS. HOURLY ROUNDING, AND CALL LIGHT WITHIN REACH.
[2018-12-14 03:22] VITALS: BP 135/76
[2018-12-14 07:29] VITALS: BP 145/77
--- NOTE | 2018-12-14 10:44 | NUR ---
SUPRIYA reviewed chart and spoke with nursing. Notified by [facility] that insurance is requesting additional PT/OT documentation. shutdown planner to fax info when available to [facility] for insurance authorization. Chart copy ordered. SUPRIYA is following to assist as needed with discharge planning.
--- NOTE | 2018-12-14 10:58 | NUR ---
JACK FROM [facility] TALKED TO LUIS AND SAID SHE NEEDS PT, AND FULL OT PAPERS BEFORE CARLOS FROM [place] WILL LOOK AT FOR AUTHORIZATION. PT AND OT ORDERED, PT AND OT WERE FAXED TO JACK AT [employer] [facility], LUIS SPOKE WITH JACK AND SHE CONFIRMED SHE RECEIVED PT AND OT TODAY, AND SHE SENT FOR AUTHORIZATION.
[2018-12-14 11:20] VITALS: BP 101/57
--- NOTE | 2018-12-14 14:23 | NUR ---
WOUND FOLLOW UP; COCCYX WOUND HAS CHANGES SINCE VISIT 12/05/18. THE COCCYX WOUND IS SLOUGHY AT THIS TIME. UNABLE TO VISUALIZE WOUND BED. PATIENT IS SUPINE MOST OF THE TIME WITH HOB >30 DEGREES FOR BREATHING DIFFICULTIES, CURRENTLY ON BIPAP. RECOMMENDATIONS; CHANGE DRESSING TO THERAHONEY M/W/F PRN. DISCUSSED WITH KOLE
[2018-12-14 15:10] VITALS: BP 108/60
--- NOTE | 2018-12-14 18:18 | NUR ---
PATIENT DOES NOT SEEM TO BE PROGRESSING TOWARDS DISCHARGED GOALS. DISCUSSED WITH DR CASTANON AND DR CASTANON DISCUSSED WITHT HE WHO ACCEPTED THAT PATIENT SHOULD BE PLACED ON HOSPICE. CM WILL F/U TOMORROW. PATIEN CODE STATUS ALSO CHANGED TO DNR PER . HE IS EASILY SOB WITH MINIMAL EXERTION. HAD TO PLACE ON BIPAP MOST OF THE DAY HIS SATS WERE ABOUT 80% ON 6L NC.
[2018-12-14 19:47] VITALS: BP 92/49
--- NOTE | 2018-12-15 04:23 | NUR ---
PT MAKING POOR PROGRESS TOWARDS GOALS. HAS SPENT MUCH OF THE NIGHT WITH BIPAP ON. FI02 SET AT 40%. EASILY SOA WITH MOVEMENT AND TYPICALLY CAN ONLY SAY ONE OR TWO WORDS BEFORE FEELING SOA. EVEN SMALL SIPS OF WATER WILL MAKE PT FEEL SOA. THUS SMALL SIPS ENCOURAGED, PACED ACTIVITIES AND ALWAYS ASKING FOR ASSISTANCE EVEN WITH JUST TAKING A DRINK ENCOURAGED.
[2018-12-15 05:21] VITALS: BP 164/84
[2018-12-15 08:08] VITALS: BP 121/60
[2018-12-15 12:17] VITALS: BP 99/62
--- NOTE | 2018-12-15 13:50 | NUR ---
RN STATED PATIENT HAS BEEN PATIENT HAS BEEN PLACED ON HOSPICE PER FAMILY REQUEST AND CONSULTATION WITH MD. SPOKE WITH FAMILY MEMBER ABOUT OT D/C.
[2018-12-15 14:36] VITALS: BP 97/60
--- NOTE | 2018-12-15 14:40 | NUR ---
SUPRIYA reviewed chart and spoke with nursing and attending physician. Early Childhood Associate Teacher spoke with pt's last evening. Decision made to initiate hospice, as pt's condition has not improved. Pt's code status changed to DNR this morning. SUPRIYA spoke with pt's , Judi, via phone to provide update. Pt's is aware and agreeable with hospice referral. SUPRIYA discussed options for hospice house setting or hospice at home. Pt's states she would be agreeable with hospice house if pt qualifies, or she is agreeable with pt going home with hospice. Options provided for hospice agencies. Pt's requests eval by Hospice. Pt's will be at [facility] later today. SUPRIYA faxed clinical info to Hospice and spoke with Gill in intake to notify of new referral. Gill will contact pt's to arrange eval. SUPRIYA updated pt's nurse. Outside the Hospital DNR form placed on pt's chart. [facility] updated. SUPRIYA is following to assist as needed with discharge planning.
--- NOTE | 2018-12-15 18:44 | NUR ---
HOSPICE WILL SEE PATIENT THIS PM FOR INTAKE. HE PREFERS TO BE TAKEN HOME AND WILL HAVE HOSPICE FROM HOME. HE HAS BEEN ON AND OFF THE BIPAP THROUGH THE DAY. HERE TO VISIT AT THIS TIME.
[2018-12-15 19:14] VITALS: BP 105/55
[2018-12-16 03:31] VITALS: BP 158/88
--- NOTE | 2018-12-16 04:39 | NUR ---
PT MAKING SLOW PROGRESS TOWARDS GOALS. ON O2 AT 4-6L PER NC THROUGHOUT THE NIGHT. CONTINUES TO EASILY BE SOA WITH ANY ACTIVITY. HAS BEEN ABLE TO SPEAK MORE EASILY IN FULL SENTENCES.
[2018-12-16 07:38] VITALS: BP 137/73
[2018-12-16 10:28] VITALS: BP 137/73
[2018-12-16 11:12] VITALS: BP 105/58
--- NOTE | 2018-12-16 11:46 | NUR ---
Nutrition: Noted plans for hospice. RD deferring further evals at this time
[2018-12-16] MEDS ORDERED: LORAZEPAM 1 MG T1 M1 PO (13:59)
[2018-12-16] MEDS ORDERED: COZAAR 50 MG TA50 MG PO (13:59)
[2018-12-16] MEDS ORDERED: COREG6.25 MG PO (13:59)
[2018-12-16] MEDS ORDERED: MUCINEX DM ER1 EAC1 PO (14:00)
[2018-12-16] MEDS ORDERED: PREDNISONE 5 MG5 M1 PO (14:01)
--- NOTE | 2018-12-16 14:40 | NUR ---
DISCHARGE ORDERS RECEIVED. PATIENT DISCHARGING TO HOME WITH [facility]. DISCHARGE ORDERS, DC SUMMARY AND BIPAP RX FAXED TO HOSPICE INTAKE, VERIFIED RECEIVED. AWAITING MEDICAL EQUIPMENT DELIVERY TO HOME. WILL FACILITATE TRANSPORTATION ONCE EQUIPMENT HAS BEEN DELIVERED. UNIT CM/SW AWARE. FOLLOWING TO ASSIST.
--- NOTE | 2018-12-16 14:48 | NUR ---
SUPRIYA received call from [employer] storage solutions architect, who evaluated pt last evening. Pt and would like for pt to return home and have hospice at home. SW updated attending physician. Obtained script for bipap. SUPRIYA spoke with Eloisa in intake at [facility]. DME was not ordered as anticipated. Awaiting DME to be delivered to pt's home. Discharge orders faxed to Hospice. SUPRIYA spoke with pt's via phone to provide update. Pt's is aware and agreeable with discharge plan. Awaiting delivery of DME, in order to arrange ambulance transportation home. SUPRIYA is following to assist as needed with discharge planning. HOSPICE-- [place]--
[2018-12-16 15:16] VITALS: BP 118/60
--- NOTE | 2018-12-16 17:18 | NUR ---
ASSUMED PATIENT CARE AT 0700. A/0 X4. PLEASANT ON THIS SHIFT. TOLERATED ON BIPAP WHEN SLEEP. DENIES PIAN. SLOWLY TOWARDS POC GOALS. WILL DC HOME AT 1000 WITH HOME HOSPICE.
[2018-12-16 20:00] VITALS: BP 150/70
[2018-12-17 04:10] VITALS: BP 131/76
--- NOTE | 2018-12-17 05:52 | NUR ---
PT MAKING SLOW PROGRESS TOWARDS GOALS. O2 AT 5L PER NC THROUGHOUT THE NIGHT. PT DID ASK TO BE ON BIPAP ONCE HE BECAME READY FOR SLEEP. HAS BEEN ON BIPAP SINCE THAT TIME.
[2018-12-17 07:40] VITALS: BP 146/76
[2018-12-17 09:53] VITALS: BP 137/73
== END 2018-12-17 10:26 | disposition hospice, home (50) | DRG 280 ==
LOC: ER 05:42 → ICU 07:08 → 2N 07:08 → EROBS 07:08 → ICU 08:14 → 2N 12-04 10:22 → ICU 12-08 01:23 → 3W 12-09 17:14
PROVIDERS: Emergency Medicine; Hospitalist; Internal Medicine; Internal Medicine Cardiovascular Disease; Nurse Practitioner Acute Care; Pediatrics; Student in an Organized Health Care Education/Training Program; ADMIT Hospitalist
PROC: 5A09357 Assistance with Respiratory Ventilation, Less than 24 Consecutive Hours, Continuous Positive Airway Pressure (ICD-10-PCS; principal; 2018-12-02)
PROC: 5A09357 Assistance with Respiratory Ventilation, Less than 24 Consecutive Hours, Continuous Positive Airway Pressure (ICD-10-PCS; 2018-12-03)
PROC: 5A09357 Assistance with Respiratory Ventilation, Less than 24 Consecutive Hours, Continuous Positive Airway Pressure (ICD-10-PCS; 2018-12-04)
PROC: 5A09357 Assistance with Respiratory Ventilation, Less than 24 Consecutive Hours, Continuous Positive Airway Pressure (ICD-10-PCS; 2018-12-05)
PROC: 5A09357 Assistance with Respiratory Ventilation, Less than 24 Consecutive Hours, Continuous Positive Airway Pressure (ICD-10-PCS; 2018-12-08)
PROC: 5A09357 Assistance with Respiratory Ventilation, Less than 24 Consecutive Hours, Continuous Positive Airway Pressure (ICD-10-PCS; 2018-12-09)
PROC: 5A09357 Assistance with Respiratory Ventilation, Less than 24 Consecutive Hours, Continuous Positive Airway Pressure (ICD-10-PCS; 2018-12-10)
PROC: 5A09357 Assistance with Respiratory Ventilation, Less than 24 Consecutive Hours, Continuous Positive Airway Pressure (ICD-10-PCS; 2018-12-11)
PROC: 5A09357 Assistance with Respiratory Ventilation, Less than 24 Consecutive Hours, Continuous Positive Airway Pressure (ICD-10-PCS; 2018-12-12)
PROC: 5A09357 Assistance with Respiratory Ventilation, Less than 24 Consecutive Hours, Continuous Positive Airway Pressure (ICD-10-PCS; 2018-12-13)
PROC: 5A09357 Assistance with Respiratory Ventilation, Less than 24 Consecutive Hours, Continuous Positive Airway Pressure (ICD-10-PCS; 2018-12-14)
PROC: 5A09357 Assistance with Respiratory Ventilation, Less than 24 Consecutive Hours, Continuous Positive Airway Pressure (ICD-10-PCS; 2018-12-15)
PROC: 5A09357 Assistance with Respiratory Ventilation, Less than 24 Consecutive Hours, Continuous Positive Airway Pressure (ICD-10-PCS; 2018-12-16)
PROC: 5A09357 Assistance with Respiratory Ventilation, Less than 24 Consecutive Hours, Continuous Positive Airway Pressure (ICD-10-PCS; 2018-12-17)
DX: I21.4 Non-ST elevation (NSTEMI) myocardial infarction (principal); I50.23 Acute on chronic systolic (congestive) heart failure; J96.21 Acute and chronic respiratory failure with hypoxia; J96.22 Acute and chronic respiratory failure with hypercapnia; E43 Unspecified severe protein-calorie malnutrition; J44.1 Chronic obstructive pulmonary disease with (acute) exacerbation; E87.2 Acidosis; I48.92 Unspecified atrial flutter; Z68.1 Body mass index [BMI] 19.9 or less, adult; E87.0 Hyperosmolality and hypernatremia; Z51.5 Encounter for palliative care; I25.10 Atherosclerotic heart disease of native coronary artery without angina pectoris; I25.5 Ischemic cardiomyopathy; I48.0 Paroxysmal atrial fibrillation; I11.0 Hypertensive heart disease with heart failure; I34.0 Nonrheumatic mitral (valve) insufficiency; I95.9 Hypotension, unspecified; E16.2 Hypoglycemia, unspecified; Z87.891 Personal history of nicotine dependence; Z95.1 Presence of aortocoronary bypass graft; Z99.81 Dependence on supplemental oxygen; Z79.01 Long term (current) use of anticoagulants; Z79.82 Long term (current) use of aspirin; Z79.899 Other long term (current) drug therapy; Z82.49 Family history of ischemic heart disease and other diseases of the circulatory system; Z83.3 Family history of diabetes mellitus; Z23 Encounter for immunization
CPT/HCPCS: 10078; 10081; 10779; 10879